=== PATIENT | female | born 1990 | race Caucasian/White ===

== ENCOUNTER 2016-09-04 19:28 | Emergency (ER) | payer MEDICAID, OTHER ==
[~2016-09-04] VITALS: Ht 175.3 cm; Wt 65.5 kg
[2016-09-04 19:52] VITALS: Ht 175.3 cm; Wt 65.5 kg
--- NOTE | 2016-09-04 21:38 | ERD ---
ER Documentation Chief Complaint Date/Time DATE: 09/04/16 TIME: 21:34 Chief Complaint 3 WEEKS WITH CRAMPING . SOAKING 2 PADS/HR. SLOWED BLEEDING HPI 25-year-old female presents to emergency department for complaints of pelvic pain cramping pain, 3/10 scale, soaked 2 pads today with vaginal bleeding. Patient complain of vaginal bleeding, more of a spotting, but did use 2 pads today. Patient denies any flank pain. Patient denies any fever or chills. Patient denies any vomiting. Patient denies any diarrhea. Patient's last menstruation pulse 60,016. ROS All systems reviewed and are negative except as per history of present illness. Medications Home Meds Reported Medications [none] Unknown Strength No Conflict Check 09/04/16 Allergies Allergies: Coded Allergies: No Known Allergy (Unverified , 09/04/16) PMhx/Soc Medical and Surgical Hx: pt denies Medical Hx, pt denies Surgical Hx History of Surgery: No Anesthesia Reaction: No Hx Neurological Disorder: No Hx Respiratory Disorders: No Hx Cardiac Disorders: No Hx Psychiatric Problems: No Hx Miscellaneous Medical Probl: No Hx Alcohol Use: No Hx Substance Use: No Hx Tobacco Use: No Smoking Status: Never smoker FmHx Family History: No coronary disease, No diabetes, No other Physical Exam Vitals Vital Signs Date Time Temp Pulse Resp B/P Pulse Ox O2 Delivery O2 Flow Rate FiO2 09/04/16 19:52 98.4 81 16 121/75 100 Physical Exam GENERAL: The patient is well developed and appropriate for usual state of health, in no apparent distress. CHEST: Clear to auscultation bilaterally. There are no rales, wheezes or rhonchi. HEART: Regular rate and rhythm. No murmurs, clicks, rubs or gallops. No S3 or S4. ABDOMEN: Soft, nontender and nondistended. Good bowel sounds. No rebound or guarding. No gross peritonitis. No gross organomegaly or masses. No Hanna sign or McBurney point tenderness. BACK: No midline or flank tenderness. EXTREMITIES: Equal pulses bilaterally. There is no peripheral clubbing, cyanosis or edema. No focal swelling or erythema. Full range of motion. Grossly neurovascularly intact. NEURO: Alert and oriented. Cranial nerves 2-12 intact. Motor strength in all 4 extremities with 5/5 strength. Sensation grossly intact. Normal speech and gait. SKIN: There is no apparent rash or petechia. The skin is warm and dry. HEMATOLOGIC AND LYMPHATIC: There is no evidence of excessive bruising or lymphedema. No gross cervical, axillary, or inguinal lymphadenopathy. VAGINAL: Mild amount of blood in the vaginal vault. No cervical motion tenderness. No adnexal tenderness noted. Cervical os is closed. Result Diagram: 09/04/16 2225 Results 24 hrs Laboratory Tests Test 09/04/16 21:33 09/04/16 22:25 Beta HCG, Quantitative 9427.0mIU/ml Basophils # 0.010^3/ul Basophils % 0.5% Blood Morphology Comment Eosinophils # 0.110^3/ul Eosinophils % 1.3% Hematocrit 34.1% Hemoglobin 11.6g/dl Lymphocytes # 3.110^3/ul Lymphocytes % 33.5% Mean Corpuscular Hemoglobin 28.9pg Mean Corpuscular Hemoglobin Concent 34.0g/dl Mean Corpuscular Volume 84.9fl Mean Platelet Volume 7.2fl Monocytes # 0.610^3/ul Monocytes % 6.3% Neutrophils # 5.410^3/ul Neutrophils % 58.4% Nucleated Red Blood Cells # 0.010^3/ul Nucleated Red Blood Cells % 0.0/100WBC Platelet Count 91427^3/UL Red Blood Count 4.0210^6/ul Red Cell Distribution Width 12.4% Urine Bilirubin NEGATIVE Urine Clarity CLEAR Urine Color LT. YELLOW Urine Glucose NEGATIVE% Urine Hemoglobin 1+ Urine Ketones NEGATIVE Urine Leukocyte Esterase NEGATIVE Urine Microscopic RBC Pending Urine Microscopic WBC Pending Urine Nitrite NEGATIVE Urine Specific [place] >=1.030 Urine Total Protein NEGATIVE Urine Urobilinogen 0.2 E.U./dL Urine pH 6.0 White Blood Count 9.310^3/ul PROCEDURE: OB Ultrasound. CLINICAL INDICATION: Positive test. Vaginal bleeding. TECHNIQUE: Ultrasound of the pelvis was performed with transabdominal and transvaginal sonography in the axial and sagittal planes. COMPARISON: No prior study is available for comparison. FINDINGS: There is a single intrauterine gestational sac. pole is not visualized. Yolk sac is present. Mean sac diameter is 0.63 cm. Menstrual age by ultrasound dates is 5 weeks 1 day. This indicates an expected date of delivery of 05/06/2017. The right ovary measures 2.5 x 2.2 x 2.5 cm. The left ovary measures 2.3 x 1.7 x 2.2 cm. Color Doppler and pulsed Doppler sonography demonstrate normal flow to both ovaries. There is no ovarian enlargement or mass. There is no other pelvic mass or free fluid. IMPRESSION: 1. Single early intrauterine gestational sac. pole is not yet visualized. Follow-up ultrasound in 10 days is advised. 2. Otherwise unremarkable study. RPTAT: QQ .Bahman Ronquillo MD, MD Date Time Electronically viewed and signed by .Bahman Ronquillo MD, MD on 09/04/2016 22:40 .R/ CC: ARMANDO NICHOLS BEVEL OPERATOR Procedures/MDM Medical Decision Making: Patients vaginal bleeding is most likely consistent of possible threatened . Patient does not show any evidence of hypovolemic shock. Patients hemoglobin and hematocrit is stable. There is low suspicion for ectopic . SHANI results show a 5 week but too early to see pole or cardiac activity. BetaHCG Quantitative is appropriate for The patient is Rh+, does not need RhoGAM this time. There is no signs of symptoms of dehydration. There is low suspicion for sepsis. Patient appears well and is hemodynamically stable. Disposition: Home. Condition: Stable Instructions: Patient is advised to do bed rest, avoid heavy lifting, and avoid having sex until cleared by OB doctor. Patient is advised to follow up with OB doctor or here at the ER in 48 hours for reevaluation of symptoms, repeat beta HCG quantitative and ultrasound. Patient is advised that is symptoms are worst, severe bleeding, dizziness, severe abdominal pain, fever, worst signs and symptoms to return to the emergency department immediately. Departure Diagnosis: Primary Impression: Threatened Additional Impression: Intrauterine Condition: Stable Patient Instructions: Possible Miscarriage (Threatened ) Additional Instructions: Patient is advised to do bed rest, avoid heavy lifting, and avoid having sex until cleared by OB doctor. Patient is advised to follow up with OB doctor or here at the ER in 48 hours for reevaluation of symptoms, repeat beta HCG quantitative and ultrasound. Patient is advised that is symptoms are worst, severe bleeding, dizziness, severe abdominal pain, fever, worst signs and symptoms to return to the emergency department immediately. ARMANDO NICHOLS NP Sep 04, 2016 21:37
[2016-09-04 22:38] LABS: BASOPHILS % 0.5 % (0.0-2.0); CONDITION 1; EOSINOPHILS # 0.1 10^3/ul (0.0-0.5); EOSINOPHILS % 1.3 % (0.0-7.0); HEMATOCRIT 34.1 % (37.0-47.0); HEMOGLOBIN 11.6 g/dl (12.0-16.0); LYMPHOCYTES # 3.1 10^3/ul (0.8-2.9); LYMPHOCYTES % 33.5 % (15.0-51.0); MEAN CORPUSCULAR HEMOGLOBIN 28.9 pg (29.0-33.0); MEAN CORPUSCULAR VOLUME 84.9 fl (82.0-101.0); MEAN PLATELET VOLUME 7.2 fl (7.4-10.4); MONOCYTE # 0.6 10^3/ul (0.3-0.9); MONOCYTES % 6.3 % (0.0-11.0); NEUTROPHIL # 5.4 10^3/ul (1.6-7.5); NEUTROPHILS % 58.4 % (39.0-77.0); PLATELET COUNT 302 10^3/UL (140-440); RED BLOOD COUNT 4.02 10^6/ul (4.20-5.40); RED CELL DISTRIBUTION WIDTH 12.4 % (11.5-14.5); UNCORRECTED WBC 9.3 10^3/ul (4.8-10.8); WHITE BLOOD COUNT 9.3 10^3/ul (4.8-10.8)
--- NOTE | 2016-09-04 22:40 | RADRPT ---
PROCEDURE: OB Ultrasound. CLINICAL INDICATION: Positive test. Vaginal bleeding. TECHNIQUE: Ultrasound of the pelvis was performed with transabdominal and transvaginal sonography in the axial and sagittal planes. COMPARISON: No prior study is available for comparison. FINDINGS: There is a single intrauterine gestational sac. pole is not visualized. Yolk sac is present. Mean sac diameter is 0.63 cm. Menstrual age by ultrasound dates is 5 weeks 1 day. This indicates an expected date of delivery of 05/06/2017. The right ovary measures 2.5 x 2.2 x 2.5 cm. The left ovary measures 2.3 x 1.7 x 2.2 cm. Color Doppler and pulsed Doppler sonography demonstrate normal flow to both ovaries. There is no ovarian enlargement or mass. There is no other pelvic mass or free fluid. IMPRESSION: 1. Single early intrauterine gestational sac. pole is not yet visualized. Follow-up ultraso und in 10 days is advised. 2. Otherwise unremarkable study. RPTAT: QQ .Bahman Ronquillo MD, MD Date Time Electronically viewed and signed by .Bahman Ronquillo MD, on 09/04/2016 22:40 .R/
[2016-09-04 22:41] LABS: ADD UMIC YES; URINE BILIRUBIN (Dip) NEGATIVE (NEGATIVE); URINE BLOOD (Dip) 1+ (NEGATIVE); URINE COLOR LT. YELLOW (YELLOW); URINE GLUCOSE (Dip) NEGATIVE (NEGATIVE); URINE KETONES (Dip) NEGATIVE (NEGATIVE); URINE LEUKOCYTE ESTERASE (Dip) NEGATIVE (NEGATIVE); URINE NITRITE (Dip) NEGATIVE (NEGATIVE); URINE TOTAL PROTEIN (Dip) NEGATIVE (NEGATIVE); URINE UROBILINOGEN (Dip) 0.2 E.U./dL (0.1-1.0)
[2016-09-04 23:31] VITALS: BP 118/80; PULSE 82; RESP 16; TEMP 98.4
[2016-09-05 00:21] LABS: SQUAMOUS EPITHELIAL CELL,UR FEW; URINE RBCS 0-2 /HPF (0)
[2016-09-05 00:22] LABS: BACTERIA,URINE FEW
== END 2016-09-04 23:32 | disposition home or self-care (01) ==
LOC: FTE 19:28
DX: O20.0 Threatened abortion (principal)
CPT/HCPCS: 36415; 76801; 76817; 81001; 84702; 85025; 86900; 86901; Z7502; 81003

== ENCOUNTER 2016-09-06 20:20 | Emergency (ER) | payer MEDICAID ==
[~2016-09-06] VITALS: Ht 172.7 cm; Wt 65.5 kg
[2016-09-06 20:23] VITALS: Ht 172.7 cm; Wt 65.5 kg
[2016-09-06 23:47] LABS: BASOPHIL # 0.1 10^3/ul (0.0-0.1); BASOPHILS % 0.5 % (0.0-2.0); EOSINOPHILS # 0.1 10^3/ul (0.0-0.5); EOSINOPHILS % 1.4 % (0.0-7.0); HEMATOCRIT 37.4 % (37.0-47.0); HEMOGLOBIN 12.7 g/dl (12.0-16.0); LYMPHOCYTES # 3.8 10^3/ul (0.8-2.9); LYMPHOCYTES % 38.4 % (15.0-51.0); MEAN CORPUSCULAR HGB CONC 33.9 g/dl (32.0-37.0); MEAN CORPUSCULAR VOLUME 85.6 fl (82.0-101.0); MEAN PLATELET VOLUME 7.3 fl (7.4-10.4); MONOCYTE # 0.7 10^3/ul (0.3-0.9); MONOCYTES % 7.1 % (0.0-11.0); NEUTROPHIL # 5.2 10^3/ul (1.6-7.5); NEUTROPHILS % 52.6 % (39.0-77.0); PLATELET COUNT 305 10^3/UL (140-440); RED BLOOD COUNT 4.37 10^6/ul (4.20-5.40); UNCORRECTED WBC 9.9 10^3/ul (4.8-10.8); WHITE BLOOD COUNT 9.9 10^3/ul (4.8-10.8)
[2016-09-06 23:54] LABS: CONDITION 1; LH ANALYZER COMMENTS 1; RED CELL DISTRIBUTION WIDTH 12.3 % (11.5-14.5); SUSPECT 1
--- NOTE | 2016-09-07 00:18 | RADRPT ---
PROCEDURE: ULTRASOUND OBSTETRICAL CLINICAL INDICATION: 25-year-old female with spotting. TECHNIQUE: Multiple sonographic images of the pelvis were obtained. The images were reviewed on a PACS workstation. COMPARISON: Ultrasound OB September 04, 2016. FINDINGS: There is a single intrauterine gestation. The mean sac diameter is 1.15 cm. This yields an estimate d gestational age of 5 weeks and 6 days. The estimated date of delivery May 03, 2017. There is a yolk sac identified. There is no evidence for a pole. There is no evidence for free fluid. The right ovary has a normal echotexture and measures 3.8 x 2.6 x 3.2 cm. There is a right ovarian c yst present measuring 2.8 x 2.2 x 2.3 cm. There is flow within the right ovary. The left ovary is not visualized. No adnexal masses are noted. IMPRESSION: 1. Single early intrauterine gestation of approximately 5 weeks 6 days without evidence for a pole at this time. The estimated date of delivery is May 03, 2017. Clinical correlation and f ollow-up ultrasound is suggested. 2. Right ovarian cyst. 3. The right ovary was not visualized. .Sascha Aguilar MD, Date Time Electronically viewed and signed by .Sascha Aguilar MD, MD on 09/07/2016 00:18 .M/
[2016-09-07] MEDS ORDERED: ACET500C5 PO (01:03)
--- NOTE | 2016-09-07 01:11 | ERD ---
ER Documentation Chief Complaint Date/Time DATE: 09/07/16 TIME: 01:08 Chief Complaint 5 weeks , vaginal bleeding x 2 days HPI 25-year-old female with no significant past medical history is a presents the ED complaining of vaginal bleeding that started 3 days ago. States that she has slight lower pelvic abdominal pain. Describes the pain as cramping and rates it a 5 out of 10. Denies any fever, chills, chest pain, shortness of breath, wheezing, nausea, vomiting, diarrhea. States that her last menses was on August 01, 2016. Denies any vaginal discharge, dysuria, urgency, frequency , hematuria. ROS All systems reviewed and are negative except as per history of present illness. Medications Home Meds Active Scripts Acetaminophen* (Tylophen*) 500 Mg Capsule, 1 CAP PO Q6H Y for PAIN AND OR ELEVATED TEMP, #20 CAP Prov:JOSEF PRATT PA-C 09/07/16 Reported Medications [none] Unknown Strength No Conflict Check 09/04/16 Allergies Allergies: Coded Allergies: No Known Allergy (Unverified , 09/04/16) PMhx/Soc History of Surgery: No Anesthesia Reaction: No Hx Neurological Disorder: No Hx Respiratory Disorders: No Hx Cardiac Disorders: No Hx Psychiatric Problems: No Hx Miscellaneous Medical Probl: No Hx Alcohol Use: No Hx Substance Use: No Hx Tobacco Use: No Physical Exam Vitals Vital Signs Date Time Temp Pulse Resp B/P Pulse Ox O2 Delivery O2 Flow Rate FiO2 09/07/16 01:26 98.6 75 20 112/65 100 Room Air 09/06/16 20:23 98.2 84 20 124/74 99 Physical Exam Const: [id number], well-nourished. In no acute distress. Head: Atraumatic, normocephalic Eyes: Normal Conjunctiva without injection. No purulent discharge. ENT: Normal external ear, nose. Moist oropharynx without tonsillar exudates. Non -erythematous pharynx. Uvula midline. No drooling. No trismus. Neck: No cervical midline tenderness. Full range of motion. No meningismus. No cervical lymphadenopathy. No JVD. Resp: Clear to auscultation bilaterally. No wheezing, rhonchi, rales, or crackles. No accessory muscle use. No retractions. Cardio: Regular rate and rhythm. No murmurs, rubs or gallops. Abd: Soft, nontender to palpation, non distended. Normal bowel sounds. No palpable masses. No rebound tenderness. No guarding. Negative McBurney's point. Negative psoas sign. Negative obturator sign. Skin: No petechiae or rashes Back: No midline tenderness. No CVA tenderness. Ext: No cyanosis, or edema. Neur: Awake and alert. Normal gait. Normal coordination. Psych: Normal Mood and Affect Result Diagram: 09/06/16 2320 Results 24 hrs Laboratory Tests Test 09/06/16 23:20 Basophils # 0.110^3/ul Basophils % 0.5% Beta HCG, Quantitative 50101.0mIU/ml Blood Morphology Comment Eosinophils # 0.110^3/ul Eosinophils % 1.4% Hematocrit 37.4% Hemoglobin 12.7g/dl Lymphocytes # 3.810^3/ul Lymphocytes % 38.4% Mean Corpuscular Hemoglobin 29.0pg Mean Corpuscular Hemoglobin Concent 33.9g/dl Mean Corpuscular Volume 85.6fl Mean Platelet Volume 7.3fl Monocytes # 0.710^3/ul Monocytes % 7.1% Neutrophils # 5.210^3/ul Neutrophils % 52.6% Nucleated Red Blood Cells # 0.010^3/ul Nucleated Red Blood Cells % 0.0/100WBC Platelet Count 92223^3/UL Red Blood Count 4.3710^6/ul Red Cell Distribution Width 12.3% White Blood Count 9.910^3/ul Procedures/MDM This is a 25-year-old female with no significant past medical history is a presents the ED complaining of vaginal bleeding that started 3 days ago. Patient is afebrile and nontoxic-appearing. At this time a beta hCG, CBC, ultrasound of the pelvis was ordered to further evaluate patient. CBC: No evidence of severe infection or anemia Urine: No elevation in nitrites, leukocyte esterase, hematuria. No evidence of UTI Rh: A positive. No indication for Rhogam at this time. beta Hc PROCEDURE: ULTRASOUND OBSTETRICAL CLINICAL INDICATION: 25-year-old female with spotting. TECHNIQUE: Multiple sonographic images of the pelvis were obtained. The images were reviewed on a PACS workstation. COMPARISON: Ultrasound OB September 04, 2016. FINDINGS: There is a single intrauterine gestation. The mean sac diameter is 1.15 cm. This yields an estimated gestational age of 5 weeks and 6 days. The estimated date of delivery May 03, 2017. There is a yolk sac identified. There is no evidence for a pole. There is no evidence for free fluid. The right ovary has a normal echotexture and measures 3.8 x 2.6 x 3.2 cm. There is a right ovarian cyst present measuring 2.8 x 2.2 x 2.3 cm. There is flow within the right ovary. The left ovary is not visualized. No adnexal masses are noted. IMPRESSION: 1. Single early intrauterine gestation of approximately 5 weeks 6 days without evidence for a pole at this time. The estimated date of delivery is May 03, 2017. Clinical correlation and follow-up ultrasound is suggested. 2. Right ovarian cyst. 3. The right ovary was not visualized. Patient's bleeding symptoms have stabilized while in the department. Low suspicion for symptomatic anemia, ectopic , sepsis, PID, appendicitis, ovarian torsion, tubo-ovarian abscess, surgical abdomen, or other emergent conditions. Patient was educated that there is a risk for threatened . Discharge medications: Tylenol Patient to follow up with [facility] in 2 days for further evaluation and treatment. Patient is to return sooner to the ED for any worsening symptoms. Patient's questions were answered. Patient understood and agreed with discharge plan. Departure Diagnosis: Primary Impression: Vaginal bleeding in patient at less than 20 weeks ges... Condition: Stable Patient Instructions: Bleeding During Early Referrals: [facility] YOU HAVE RECEIVED A MEDICAL SCREENING EXAM AND THE RESULTS INDICATE THAT YOU DO NOT HAVE A CONDITION THAT REQUIRES URGENT TREATMENT IN THE EMERGENCY DEPARTMENT. FURTHER EVALUATION AND TREATMENT OF YOUR CONDITION CAN WAIT UNTIL YOU ARE SEEN IN YOUR DOCTORS OFFICE WITHIN THE NEXT 1-2 DAYS. IT IS YOUR RESPONSIBILITY TO MAKE AN APPOINTMENT FOR FOLOW-UP CARE. IF YOU HAVE A PRIMARY DOCTOR --you should call your primary doctor and schedule an appointment IF YOU DO NOT HAVE A PRIMARY DOCTOR YOU CAN CALL OUR PHYSICIAN REFERRAL HOTLINE AT IF YOU CAN NOT AFFORD TO SEE A PHYSICIAN YOU CAN CHOSE FROM THE FOLLOWING [facility] [address] [facility] [address] [address] [facility] [facility] [address] [facility] [address] [facility] [address] [facility]. [facility]. [address] [facility]. [facility] YOU HAVE RECEIVED A MEDICAL SCREENING EXAM AND THE RESULTS INDICATE THAT YOU DO NOT HAVE A CONDITION THAT REQUIRES URGENT TREATMENT IN THE EMERGENCY DEPARTMENT. FURTHER EVALUATION AND TREATMENT OF YOUR CONDITION CAN WAIT UNTIL YOU ARE SEEN IN YOUR DOCTORS OFFICE WITHIN THE NEXT 1-2 DAYS. IT IS YOUR RESPONSIBILITY TO MAKE AN APPOINTMENT FOR FOLOW-UP CARE. IF YOU HAVE A PRIMARY DOCTOR --you should call your primary doctor and schedule and appointment IF YOU DO NOT HAVE A PRIMARY DOCTOR YOU CAN CALL OUR PHYSICIAN REFERRAL HOTLINE AT . IF YOU CAN NOT AFFORD TO SEE A PHYSICIAN YOU CAN CHOSE FROM THE FOLLOWING [facility] INSTITUTIONS: [facility] [address] [place] [address] [facility] [address] [place] [address] [facility] [address] [place] [address] [facility] [place] [address] [facility] [address] [place], [place] [phone] OFFICE FAX LYNDSEY LAWSON [address] [place], [place] [phone] [place] [address] [place], [place] [phone] JESSICA PECK [address] [facility], [address] [id number] [address] [place], [place] [phone] [facility] [address] [place] [phone] [address] [facility] [id number] - [place] [address] [facility] [phone], [place] [address] [facility]. [address], [facility] [id number]ACARIAS, [facility] [address] [place] [address] [facility] Hours: 8:00 am - 5:00 pm Additional Instructions: FOLLOW UP WITH YOUR [facility] in 2 days for further evaluation and treatment. Return to this facility if you are not improving as expected. JOSEF PRATT PA-C Sep 07, 2016 01:11
[2016-09-07 01:26] VITALS: BP 112/65; PULSE 75; RESP 20; TEMP 98.6
== END 2016-09-07 01:30 | disposition home or self-care (01) ==
LOC: FTE 20:20
DX: O20.9 Hemorrhage in early pregnancy, unspecified (principal); O26.891 Other specified pregnancy related conditions, first trimester; R10.2 Pelvic and perineal pain; Z3A.01 Less than 8 weeks gestation of pregnancy
CPT/HCPCS: 36415; 76801; 76817; 84702; 85025; Z7502